=== PATIENT | female | born 1975 | race Caucasian/White ===

== ENCOUNTER → 2016-11-17 09:43 | Outpatient (CLI) | payer OTHER, MEDICAID | LOC: D.MAMMO 11-13 16:15 | DX: Z12.31 Encounter for screening mammogram for malignant neoplasm of breast (principal) ==

== ENCOUNTER → 2016-12-16 18:59 | Outpatient (CLI) | payer OTHER, MEDICAID | END | disposition home or self-care (01) | LOC: D.MAMMO 14:00 | DX: R92.8 Other abnormal and inconclusive findings on diagnostic imaging of breast (principal) ==

== ENCOUNTER 2017-09-29 00:37 | Inpatient (IN) | payer OTHER, MEDICAID ==
[2017-09-29] VITALS (7 sets, daily range): BP systolic 102–119; BP diastolic 53–77; Ht 172.7 cm; Wt 84.1 kg
[~2017-09-29] VITALS: Ht 172.7 cm; Wt 84.1 kg
--- NOTE | ~2017-09-29 | DS ---
PATIENT:SIMÓN BROWN :77 MEDICAL RECORD: [id number] DISCHARGE SUMMARY ADMISSION DATE: 09/29/17 DISCHARGE DATE: 09/29/17 DATE OF ADMISSION: 09/29/2017 DATE OF DISCHARGE: 09/29/2017 ADMISSION DIAGNOSES: 1. Acute cholecystitis. 2. GERD. 3. COPD. 4. Fibromyalgia. 5. Bipolar disorder. DISCHARGE DIAGNOSES: 1. Acute cholecystitis. 2. GERD. 3. COPD. 4. Fibromyalgia. 5. Bipolar disorder. PROCEDURE: Laparoscopic cholecystectomy on 09/29/2017. CONSULTATIONS: None. REPORT OF HOSPITALIZATION: The patient was admitted to the hospital through the ER with acute cholecystitis. The patient was given antibiotics in the Emergency Room and transferred from there to the operating room. She underwent a successful laparoscopic cholecystectomy and was set up for discharge home postoperatively. DISCHARGE INSTRUCTIONS: Return to clinic or call if any questions, concerns, fevers, chills, nausea, vomiting, or worsening abdominal pain. ACTIVITIES: No heavy lifting or straining for 2 weeks postoperatively. FOLLOWUP: Follow up is in clinic with me in 2-3 weeks. DISCHARGE MEDICATIONS: Resume home medications with the inclusion of [place] 10 mg. TRANSINT:[id number] Voice Confirmation ID: [id number] DOCUMENT ID: [id number] ANDREI FIERRO MD at 1041 CC: [id number] DICTATION DATE: 11/03/17 0810 HSPT TUTOR: 11/03/17 1335 DIS IN 09/29/17 [place] [address]
--- NOTE | ~2017-09-29 | OP ---
PATIENT NAME: SIMÓN BROWN MEDICAL RECORD: [id number] :77 LOCATION:[facility]- ADMISSION DATE:09/29/17 SURGEON: EVIN FIERRO MD DATE OF OPERATION: 09/29/2017 PREOPERATIVE DIAGNOSES: 1. Acute cholecystitis. 2. Bipolar disorder. 3. Fibromyalgia. 4. Gastroesophageal reflux disease. 5. Chronic obstructive pulmonary disease. POSTOPERATIVE DIAGNOSES: 1. Acute cholecystitis. 2. Bipolar disorder. 3. Fibromyalgia. 4. Gastroesophageal reflux disease. 5. Chronic obstructive pulmonary disease. PROCEDURE: Laparoscopic cholecystectomy. SURGEON: Evin Fierro MD FIELD SERVICE CONSULTANT: Tiffany Licea APRN REPORT OF PROCEDURE: The patient's abdomen was prepped and draped in sterile fashion. A cutdown was made on the superior aspect of the umbilicus. We encountered a piece of mesh from a previous umbilical hernia repair. We opened up the superior aspect of this mesh and bluntly entered the abdominal cavity. A 12-mm Nelsy port was then inserted into the abdomen and the abdomen was insufflated. Under direct visualization, a 5 mm trocar was placed in the epigastrium and 2 more 5-mm trocars were placed in the right subcostal region. The gallbladder was noticed to be markedly distended and inflamed with no sign of any perforation or gangrene. A needle was used to aspirate the gallbladder to reduce the distention and allow easy grasping. We then dissected out the cystic artery and cystic duct. These structures were clipped proximally and distally and ligated in standard fashion. The gallbladder was taken off the liver bed using electrocautery and placed into an Endo Catch bag. Any bleeding from the liver bed was then treated with electrocautery. We irrigated out the right upper quadrant and assured there was no sign of any further bleeding or bile leakage. At this point, the ports and insufflation were then removed and the gallbladder was taken out through the umbilicus. The umbilical fascia was closed with interrupted 0 Prolenes times 4. The subcutaneous tissues were reapproximated with a running 5-0 Monocryl and then irrigated out with normal saline. We infused a total of 10 mL of 0.25% Marcaine into the surrounding tissues and then closed all the wounds with subcutaneous 5-0 Monocryl. COMPLICATIONS: None. CONDITION: Stable. ANESTHESIA: General endotracheal and local. BLOOD LOSS: 30 mL. OPERATIVE REPORT [id number] SIMÓN BROWN TRANSINT:[id number] Voice Confirmation ID: [id number] DOCUMENT ID: [id number] EVIN FIERRO MD at 0801 CC: [id number] DICTATION DATE: 09/29/17 1242 WELL TREATMENT OFFSIDER: 09/29/17 1307 DIS IN 09/29/17 [place] [id number] [place] [id number]
[2017-09-29] MEDS ORDERED: KADIAN50 MG PO (00:44)
[2017-09-29] MEDS ORDERED: LYRICA150 MG PO (00:45)
[2017-09-29] MEDS ORDERED: SAVELLA50 MG PO (00:45)
[2017-09-29] MEDS ORDERED: TOPAMAX50 MG PO (00:46)
[2017-09-29] MEDS ORDERED: ABILIFY2 MG PO (00:46)
[2017-09-29] MEDS ORDERED: EFFEXOR XR150 MG PO (00:46)
[2017-09-29] MEDS ORDERED: IMITREX4 MG/0.5 M SQ (00:47)
[2017-09-29] MEDS ORDERED: PROTONIX20 MG (00:47)
[2017-09-29 01:27] LABS: APPEARANCE HAZY (CLEAR); BILIRUBIN NEGATIVE (NEGATIVE); COLOR YELLOW (YELLOW); GLUCOSE NEGATIVE (NEGATIVE); KETONE NEGATIVE (NEGATIVE); NITRITE NEGATIVE (NEGATIVE); PROTEIN 1+ mg/dL (NEGATIVE); UROBILINOGEN NORMAL (NORMAL)
[2017-09-29 01:28] LABS: BASOPHILS 0.2 % (0-2); EOSINOPHILS 2.3 % (0-7); HEMATOCRIT 39.2 % (36.0-48.0); HEMOGLOBIN 13.6 g/dL (12-16); IMMATURE GRANULOCYTES 0.5 % (0-5); LYMPHOCYTES 22.5 % (15-50); MCH 29.8 pg (26.0-34.0); MCHC 34.7 g/dL (31.0-37.0); MEAN PLATELET VOLUME 8.6 fL (7.4-10.4); MONOCYTES 7.2 % (2-11); NEUTROPHILS 67.3 % (40-80); PLATELET COUNT 286 10x3/uL (130-400); RBC 4.56 10x6/uL (4.00-5.40); RDW 14.9 % (11.5-14.5); WBC 12.9 10x3/uL (4.8-10.8)
[2017-09-29 01:28] LABS: BACTERIA MODERATE /hpf (NONE SEEN); EPITHELIAL CELLS 0-5 /hpf (0-5); RED CELLS - URINE 0-5 /hpf (0-5)
[2017-09-29 01:38] LABS: APTT 29.8 SECONDS (22.8-39.4); INR 1.05 (0.85-1.17); PROTIME 13.3 SECONDS (11.6-15.0)
[2017-09-29 01:40] LABS: D-DIMER-QUANTITATIVE 0.93 ug/mLFEU (0.20-0.54)
[2017-09-29 01:41] LABS: ALKALINE PHOSPHATASE 85 U/L (46-116); ALT (SGPT) 18 U/L (10-68); BILIRUBIN - TOTAL 0.36 mg/dL (0.2-1.3); CALC OSMOLALITY 260 mosm/kg (275-300); CALCIUM 8.4 mg/dL (8.5-10.1); CARBON DIOXIDE 21.7 mmol/L (21.0-32.0); CHLORIDE - SERUM 101 mmol/L (98-107); GLUCOSE 104 mg/dL (74-106); POTASSIUM - SERUM 3.5 mmol/L (3.5-5.1); PROTEIN - SERUM 7.1 g/dL (6.4-8.2); SODIUM 131 mmol/L (136-145); UREA NITROGEN 8 mg/dL (7-18); eGFR NON AFRICAN AMERICAN 65 mL/min (90-120)
[2017-09-29 01:54] LABS: AMYLASE - SERUM 34 U/L (25-115); CKMB 0.2 U/L (0.0-3.6); CREATINE KINASE 56 UL (21-215); LIPASE 108 U/L (73-393); PRO BNP 17 pg/mL (0-125); TROPONIN-I < 0.017 ng/mL (0.000-0.060)
[2017-09-29 11:03] LABS: HCG SERUM NEGATIVE (NEGATIVE)
[2017-09-29] MEDS ORDERED: HYDROCODONE-APA1 TAB PO (12:35)
== END 2017-09-29 15:10 | disposition home or self-care (01) | DRG 419 ==
LOC: D.ER 00:37 → D.EDHOLD 07:55 → D.SDCHOLD 07:55
PROVIDERS: Family Medicine; Surgery
PROC: 0FT44ZZ Resection of Gallbladder, Percutaneous Endoscopic Approach (ICD-10-PCS; principal; 2017-09-29 11:18)
DX: K81.0 Acute cholecystitis (principal); F31.9 Bipolar disorder, unspecified; M79.7 Fibromyalgia; K21.9 Gastro-esophageal reflux disease without esophagitis; K44.9 Diaphragmatic hernia without obstruction or gangrene; F17.200 Nicotine dependence, unspecified, uncomplicated

== ENCOUNTER 2018-05-10 19:00 | Outpatient (CLI) | payer OTHER ==
[2017-09-29 08:38] VITALS: BMI 28.1
[~2018-05-10 19:00] MED LIST: ABILIFY2 MG PO; EFFEXOR XR150 MG PO; HYDROCODONE-APA1 TAB PO; IMITREX4 MG/0.5 M SQ; KADIAN50 MG PO; LYRICA150 MG PO; PROTONIX20 MG; SAVELLA50 MG PO; TOPAMAX50 MG PO
== END 2018-05-10 23:59 | disposition home or self-care (01) ==
LOC: D.MAMMO 19:00
PROVIDERS: ATTEND Family Medicine
DX: R92.8 Other abnormal and inconclusive findings on diagnostic imaging of breast (principal)

== ENCOUNTER 2018-10-22 09:00 | Outpatient (CLI) | payer OTHER ==
[2017-09-29 08:38] VITALS: BMI 28.1
[~2018-10-22 09:00] MED LIST changes: +ABILIFY10 MG PO; -ABILIFY2 MG PO; -PROTONIX20 MG; +PROTONIX20 MG PO
[2018-11-15] MEDS ORDERED: PEPCID AC20 MG PO (08:37)
[2018-11-15] MEDS ORDERED: SINGULAIR10 MG PO (08:38)
[2018-11-15] MEDS ORDERED: ALBUTEROL SULF8.5 GM INH (08:39)
[2018-11-15] MEDS ORDERED: SYMBICORT 80-10.2 GM INH (08:42)
[2018-11-16 06:46] VITALS: BMI 29.5
== END 2018-10-22 11:00 | disposition home or self-care (01) ==
LOC: D.MAMMO 09:00
PROVIDERS: ATTEND Family Medicine
DX: R92.8 Other abnormal and inconclusive findings on diagnostic imaging of breast (principal)

== ENCOUNTER 2018-11-16 05:35 | Day surgery (SDC) | payer OTHER, MEDICAID ==
[2018-11-15 09:51] LABS: HEMOGLOBIN 16.4 g/dL (12-16); MCH 29.8 pg (26.0-34.0); MCHC 35.7 g/dL (31.0-37.0); MCV 83.6 fL (80.0-100.0); MEAN PLATELET VOLUME 9.2 fL (7.4-10.4); RBC 5.5 10x6/uL (4.00-5.40); RDW 15.4 % (11.5-14.5); WBC 12.3 10x3/uL (4.8-10.8)
[~2018-11-16] VITALS: Ht 172.7 cm; Wt 88.0 kg
[~2018-11-16 05:35] MED LIST changes: +ALBUTEROL SULF8.5 GM INH; +PEPCID AC20 MG PO; +SINGULAIR10 MG PO; +SYMBICORT 80-10.2 GM INH
[2018-11-16 06:46] VITALS: BP 125/45; Ht 172.7 cm; Wt 88.0 kg
[2018-11-16 06:55] LABS: HCG URINE NEGATIVE (NEGATIVE)
--- NOTE | 2018-11-16 07:10 | NUR ---
DR. PHILLIPS NOTIFIED AND REVIEWED PT'S BEHAVIOR AND ASSESSMENT RESULTS. PT IS A LOW RISK PER DR. PHILLIPS. DR. PHILLIPS STATED TO GIVE RESOURCES TO PT AT TIME OF DISCHARGE. NO FURTHER ORDERS AT THIS TIME. RESOURCES REVIEWED WITH PT AND SHE VERBALIZED UNDERSTANDING.
--- NOTE | 2018-11-16 12:51 | NUR ---
1235 DRESSED. AWAKE & ALERT. GIVEN DISCHARGE INFORMATION INCLUDING: RX: [facility], MED REC, RTC APPT., [facility] D/C INSTRUCTIONS, & CYSTOSCOPY D/C INSTRUCTIONS. PT VOICED UNDERSTANDING. TO PRIVATE CAR PER WHEELCHAIR BY VOLUNTEER. HOME WITH STEPHANIE. Zak LAZCANO R.N.
--- NOTE | 2018-11-16 13:21 | OP ---
PATIENT NAME: SIMÓN BROWN MEDICAL RECORD: [id number] :77 LOCATION:[facility] ADMISSION DATE: SURGEON: JOSE GUADALUPE CADET MD DATE OF OPERATION: 11/16/2018 SURGEON: Jose Guadalupe Cadet MD ANESTHESIA: General anesthesia by Marlon Rabago CRNA. DIAGNOSIS: Vaginal mesh extrusion. PROCEDURE: Cystoscopy, removal of pubovaginal sling mesh. FINDINGS: Vaginal mesh extrusion on the right lateral anterior vaginal wall. SPECIMENS: Pubovaginal sling mesh. BLOOD LOSS: None. CLINICAL HISTORY: This is a 43-year-old female who had a pubovaginal sling using vaginal mesh by Dr. Ramirez 12 years ago. She now reports dyspareunia. Dr. Rivers saw her 2 months ago and noted that there was vaginal mesh extrusion. He removed a piece of the mesh. She comes now to have the entire pubovaginal sling removed. SHE IS ALLERGIC TO MYRBETRIQ, BEE AND WASP VENOM. She was given Ancef community education specialist to the OR. DESCRIPTION OF PROCEDURE: The patient was given induction of general anesthesia. She was then placed into the lithotomy position and prepped and draped. A weighted speculum was placed to hold down the posterior vaginal wall. A 16-Icelandic Mccrary catheter was placed into the bladder for drainage. The labia majora were retracted laterally using stay sutures of #2 nylon anchored to the medial thighs. On examining the anterior vaginal wall, I can see the mesh visibly and clearly through a defect in the anterior vaginal wall on the right side. There is also an opening on the right lateral portion of the vaginal wall, through which some thin pus is coming out, which probably represents the other end of the mesh. A 1 cm midline incision was made in the anterior vaginal wall midline. This was right over the mesh. I then started dissecting with Metzenbaum scissors the mesh. A right-angle clamp was used to help dissect the mesh away from the urethra. Once the mesh was completely free from the vaginal wall and the urethra, it was pulled through the midline incision. Using hemostat for traction, I continued to dissect along the mesh using a right angle to assist with the dissection until I encountered the obturator membrane, through which the mesh passed. The mesh was cleared as far as possible along the obturator membrane with Metzenbaum scissors. Finally, 2 hemostats were placed on the mesh right on the obturator membrane and with a sharp pole, I managed to pull out all of the mesh. This removed most of the mesh. I felt that there was still a fragment on the right side. Placing a hemostat in and probing, I was able to finally trap the distal portion of the mesh on the right side. By putting traction and with blunt dissection using a right angle clamp along the mesh, I was able to get to the obturator membrane on the right side. Again, placing another hemostat on the mesh right on the obturator membrane with the 2 hemostats being on the graft, a sharp tug resulted in complete removal of the mesh. No further mesh could be palpated anywhere. The wounds were irrigated out with normal saline. The mesh was sent to pathology for identification. Then, 4-0 Monocryl sutures were used to close the vaginal OPERATIVE REPORT [id number] SIMÓN BROWN. Cystoscopy was performed and there was no sign of bladder injury or urethral injury. Single ureteral orifices were seen and there were no bladder tumors. The Mccrary catheter was used to drain the bladder and then it was removed. Vaginal packing consisting of Kerlix infiltrated with estrogen cream was placed into the vagina. It will be removed prior to her going home today. The stay sutures to the labia majora were removed. The patient was then awakened and brought to the recovery room. I will see her in followup in 2 weeks' time. TRANSINT:[id number] Voice Confirmation ID: [id number] DOCUMENT ID: [id number] JOSE GUADALUPE CADET MD at 1321 CC: [id number] DICTATION DATE: 11/16/18 1041 ASSISTANT TO THE VICE PRESIDENT: 11/16/18 1313 [facility] 11/16/18 [facility] [address] [place] [id number]
== END 2018-11-16 12:35 | disposition home or self-care (01) ==
LOC: D.OPS 05:35 → D.PAN 10:30 → D.OPS 10:30
PROVIDERS: Anesthesiology; ATTEND Urology
DX: T83.721A Exposure of implanted vaginal mesh into vagina, initial encounter (principal); Z01.812 Encounter for preprocedural laboratory examination; F17.200 Nicotine dependence, unspecified, uncomplicated

== ENCOUNTER 2019-08-30 08:00 | Outpatient (CLI) | payer OTHER, MEDICAID ==
[2018-11-16 06:46] VITALS: BMI 29.5
== END 2019-08-30 10:00 | disposition home or self-care (01) ==
LOC: D.MAMMO 08:00
PROVIDERS: ATTEND Family Medicine
DX: R92.8 Other abnormal and inconclusive findings on diagnostic imaging of breast (principal)